=== PATIENT | male | born 1985 | race Caucasian/White ===

== ENCOUNTER 2020-10-23 15:43 | Outpatient (CLI) | payer OTHER, SELFPAY ==
--- NOTE | ~2020-10-23 | XR_ITS ---
EXAMINATION: XR hip RT min 3V w AP pelvis DATE: 10/23/2020 16:23 INDICATION: Right hip pain. TECHNIQUE: An anteroposterior pelvis and 3 views of right hip were obtained. COMPARISON: None. FINDINGS: Bone alignment is normal. No fracture. There is mild right hip osteoarthritis characterized by a tiny marginal osteophyte. Left hip joint space is normal. IMPRESSION: 1. Mild right hip osteoarthritis. Reviewed, dictated and finalized at location A.
--- NOTE | ~2020-10-23 | XR_ITS ---
EXAMINATION: XR lumbar spine 2-3V DATE: 10/23/2020 16:23 INDICATION: Dorsalgia, unspecified. TECHNIQUE: 3 views of lumbar spine were obtained. COMPARISON: None. FINDINGS: There is 3 degrees dextrocurvature of lumbar spine. Vertebral body heights and intervertebr al disc heights are normal. The facet joints are unremarkable. IMPRESSION: 1. No etiology for the patient's symptoms. Reviewed, dictated and finalized at location A.
== END 2020-10-23 15:44 | disposition home or self-care (01) ==
PROVIDERS: PCP Physician Assistant; Visit Provider Physician Assistant
DX: M25.551 Pain in right hip (principal); M54.9 Dorsalgia, unspecified; M16.11 Unilateral primary osteoarthritis, right hip
CPT/HCPCS: 72100; 73502